=== PATIENT | male | born 1985 | race Asian ===

== ENCOUNTER 2022-11-08 09:19 | Emergency (ER) | payer SELFPAY ==
[~2022-11-08] VITALS: Ht 185.4 cm; Wt 99.8 kg
[2022-11-08 09:30] VITALS: BP 122/68; TEMP 98.2; O2SAT 98
[2022-11-08 09:31] VITALS: PULSE 89; RESP 18
[2022-11-08] MEDS ORDERED: LIDOCAINE HCL/PF 1% 10 MG/ML 5ML VIAL INFIL ONE (10:00)
[2022-11-08] MEDS ORDERED: BACITRACIN ZINC OINT UDPKT TOP ONE (10:00)
[2022-11-08] MEDS ORDERED: TETANUS, DIPHTHERIA, PERTUSSIS VAC/PF 0.5ML (>10YR OLD) IM ONE (10:00)
[2022-11-08] MEDS ORDERED: TRANEXAMIC ACID 1,000 MG/10 ML TP ONE (10:30)
[2022-11-08] MEDS ORDERED: TRANEXAMIC ACID 1,000 MG in SODIUM CHLORIDE 0.9% 100 ML IV ONE (10:30)
== END 2022-11-08 10:31 | disposition left against medical advice (07) ==
LOC: ER 09:19
DX: S61.412A Laceration without foreign body of left hand, initial encounter (principal); W26.0XXA Contact with knife, initial encounter; Y93.89 Activity, other specified; Y92.89 Other specified places as the place of occurrence of the external cause; Y99.8 Other external cause status
CPT/HCPCS: 99281; J3490; J7050; Z7610